=== PATIENT | female | born 1975 | race Caucasian/White ===

== ENCOUNTER 2017-06-05 19:07 | Emergency (ER) | payer BC, OTHER ==
[2017-06-05 19:17] VITALS: BP 131/77; PULSE 87; TEMP 98.1; O2SAT 99
[2017-06-05] MEDS ORDERED: Albuterol-Ipratrop 3 mg / 0.5 (3 ml) UD INH STA (19:35)
[2017-06-05] MEDS ORDERED: Albuterol-Ipratrop 3 mg / 0.5 (3 ml) UD ONE (19:42)
[2017-06-05 20:00] VITALS: RESP 19
--- NOTE | 2017-06-05 20:17 | ED PDOC ---
HPI: SOB/CHF/COPD Time Seen by Provider: 06/05/17 19:19 Chief Complaint (Nursing): Shortness Of Breath Chief Complaint (Provider): Shortness Of Breath History Per: Patient History/Exam Limitations: no limitations Onset/Duration Of Symptoms: Intermittent Episodes Current Symptoms Are (Timing): Still Present Additional Complaint(s): 41 year old female presents to the ER complaining of intermittent asthma exacerbations over the last month, which have been improving with inhaler. Last night it got acutely worse, and patient states when it becomes this severe she requires a shot of steroids. She could not see her PMD today because office was closed. Patient also with cough, productive of clear sputum. No fever or hemoptysis. Patient states her triggers are usually cold weather and pets, of which she currently has guests with pets staying at her house. PMD: Tessa Past Medical History Reviewed: Historical Data, Nursing Documentation, Vital Signs Vital Signs: Last Vital Signs Temp 98.1 F 06/05/17 19:15 Pulse 87 06/05/17 19:15 Resp 19 06/05/17 19:40 BP 131/77 06/05/17 19:15 Pulse Ox 99 06/05/17 20:31 - Medical History PMH: Asthma Other PMH: Multiple allergies - Family History Family History: States: Other - Social History Current smoker - smoking cessation education provided: Yes - Home Medications Home Medications: Ambulatory Orders Medication Instructions Recorded predniSONE [Prednisone] 60 mg PO DAILY #12 tab 06/05/17 - Allergies Allergies/Adverse Reactions: Allergies Allergy/AdvReac Type Severity Reaction Status Date / Time No Known Allergies Allergy Verified 06/05/17 19:15 Review of Systems ROS Statement: Except As Marked, All Systems Reviewed And Found Negative (As per HPI, otherwise negative) Constitutional: Negative for: Fever Respiratory: Positive for: Cough, Shortness of Breath, Sputum, Wheezing. Negative for: Hemoptysis Physical Exam - Reviewed Nursing Documentation Reviewed: Yes Vital Signs Reviewed: Yes - Physical Exam Appears: Positive for: Non-toxic, In Acute Distress Head Exam: Positive for: ATRAUMATIC, NORMOCEPHALIC Skin: Positive for: Warm, Dry Eye Exam: Positive for: EOMI, PERRL ENT: Positive for: Pharynx Is (clear) Neck: Positive for: Painless ROM, Supple Cardiovascular/Chest: Positive for: Regular Rate, Rhythm. Negative for: Murmur Respiratory: Positive for: Wheezing, Respiratory Distress. Negative for: Accessory Muscle Use Back: Positive for: Normal Inspection. Negative for: Decreased ROM Extremity: Positive for: Normal ROM. Negative for: Deformity Lymphatic: Negative for: Adenopathy Neurologic/Psych: Positive for: Alert - ECG O2 Sat by Pulse Oximetry: 99 (RA) Pulse Ox Interpretation: Normal Medical Decision Making Medical Decision Making: Initial Impression: Asthma exacerbation Time: 19:35 Initial Plan: * Duoneb 3ml INH * Solu Medrol 125 mg IM Scribe Attestation: Documented by Clara Burkett, acting as a scribe for Lori Conklin MD Provider Scribe Attestation: All medical record entries made by the Scribe were at my direction and personally dictated by me. I have reviewed the chart and agree that the record accurately reflects my personal performance of the history, physical exam, medical decision making, and the department course for this patient. I have also personally directed, reviewed, and agree with the discharge instructions and disposition. Disposition - Clinical Impression Clinical Impression: Asthma Counseled Patient/Family Regarding: Studies Performed, Diagnosis, Need For Followup, Rx Given - Disposition Referrals: Jovi Zarate MD [Family Provider] - Disposition: Routine/Home Disposition Time: 20:29 Condition: IMPROVED Prescriptions: predniSONE [Prednisone] 60 mg PO DAILY #12 tab Instructions: Asthma (ED)
== END 2017-06-05 20:46 | disposition home or self-care (01) ==
LOC: H.ER 19:07
DX: J45.21 Mild intermittent asthma with (acute) exacerbation (principal); F17.200 Nicotine dependence, unspecified, uncomplicated
CPT/HCPCS: 94640; 96372; 99283; J2930